=== PATIENT | female | born 1990 | race Caucasian/White ===

== ENCOUNTER 2016-10-17 11:43 | Emergency (ER) | payer SELFPAY ==
[~2016-10-17] VITALS: Ht 162.6 cm; Wt 54.5 kg
[~2016-10-17 11:43] MED LIST: ONDA4TAB9 PO
[2016-10-17 11:47] VITALS: BP 121/75; PULSE 80; RESP 16; O2SAT 97
--- NOTE | 2016-10-17 12:14 | ED.REPORT ---
HPI-Abd Pain F Under 40 Date of Service Oct 17, 2016 ED Provider: Edison Thurman MD This is a 26 year old female who is 6 weeks presenting complaining of nausea and vomiting that began one week ago. Associated with diffuse abdominal pain. Reports decreased PO intake. Pt not taking any anti-emetics at this time. Denies hematemesis or vaginal bleeding. Pt is scheduled for an elective one week from now. Nursing Notes Stated Complaint: NAUSEA/6 OR 7WEEKS PREG Chief Complaint: Female Abdominal Pain Nursing Notes Reviewed: Yes Allergies: Coded Allergies: No Known Allergies (Verified Allergy, Unknown, 10/17/16) Scheduled PRN Metoclopramide (Reglan) 5 Mg Tablet 5 MG PO QID PRN PRN For Nausea Ondansetron (Zofran) 4 Mg Tablet 4 MG PO Q4H PRN PRN For Nausea Ondansetron ODT (Zofran ODT) 4 Mg Tablet 4 MG PO Q4H PRN PRN For Nausea General Time Seen by MD: 11:50 Chief Complaint Nausea, , 1st trimester Hx Obtained From: Patient Arrived By: Walk-in Sudden in Onset?: Yes Onset Occurred: Just prior to arrival Symptom Duration: Since onset Severity: Current: No pain currently Pertinent Negative: Pt denies other symptoms Recent Healthcare: No recent doctor visit, No recent hospitalization Similar Sx Previous: No Past Medical History Past Medical History Reports: Asthma Past Surgical History Reports: Smoking History Current Every Day Smoker Social History Alcohol Use: Denies alcohol use Drug Use: Denies drug use Other Social History: Good social support, Lives with children, Local resident Ambulatory Status Independent Review of Systems Constitutional: Denies: Chills, Fever Respiratory: Denies: Shortness of breath GI: Reports: Abdominal pain, Nausea, Vomiting Complete sys rev & neg: except as marked. Physical Exam Initial Vital Signs Vital Signs (First) Date Time Temp Pulse Resp B/P Pulse Ox O2 Delivery O2 Flow Rate FiO2 10/17/16 11:47 36.9 80 16 121/75 97 10/17/16 14:45 Room Air Initial VS: Reviewed Head / Eyes: Atraumatic, Normocephalic, PERRL ENT: Mucous membranes moist, Conjunctiva normal, No scleral icterus Neck: Supple, Non-tender, Full range of motion Extremities: Vascular intact, Neuro intact, No swelling, No tenderness Skin: Warm, Dry, No cyanosis Neurologic: Alert, Oriented, Nonfocal Psychiatric: Mood/affect normal, Behavior normal, Normal thought content General/Constitutional: Awake, Alert Respiratory / Chest: Breath sounds NL, Breath sounds = bilat, No respiratory distress, No rales, No rhonchi, No wheezing Cardiovascular: Heart rate NL, Regular rhythm, Heart sounds NL, Peripheral circulation NL Abdomen: No guarding, No rebound, BS normoactive Tenderness/Guarding/Rebound: Positive: Tender diffuse Back: Inspection NL, Full range of motion, Non-tender, No midline vertebral tend, No paraspinal tenderness, No CVA tenderness Interpretation & Diagnostics Lab Results Interpretation Test 10/17/16 15:00 Hold Urine Received (Received) Re-Eval/Medical Decision Med Decision/Clinical Course Med Decision/Clinical Course: 26-year-old female history of hyperemesis gravidarum and previous pregnancies presenting 6 weeks by LMP with nausea vomiting 1 week. Patient was given several doses of Zofran and 1 dose of Reglan and her nausea vomiting resolved. She had no abdominal pain until immediately prior to discharge was given some morphine and her symptoms resolved. Her abdominal pain was epigastric. Vital signs stable. Given prescription for Zofran and Reglan to use as needed for nausea and vomiting. She has follow-up with [facility] week for elective . Return precautions given. Re-Evaluation/Progress : Time of Eval: 15:11 Re-Evaluation/Progress Note: Re-checked, nausea is improved. Plan for d/c, all questions addressed. Counseled Regarding: Diagnosis, Lab results, Need for follow-up, When/why to return to ED Discharge & Departure Primary Impression: Vomiting Vomiting type: unspecified Vomiting Intractability: unspecified Nausea presence: with nausea Qualified Code: R11.2 - Nausea with vomiting, unspecified Additional Impression: Weeks of gestation: less than 8 weeks Qualified Code: Z3A.01 - Less than 8 weeks gestation of Disposition: Home Discharge Condition All VS Reviewed: Yes Condition: Stable Patient Instructions: Acute Nausea and Vomiting (ED) Additional Instructions: Take Zofran as prescribed for nausea. Follow-up with your primary care provider. Return to the emergency department if you develop any new or worsening symptoms such as abdominal pain, fever, chills, or vaginal bleeding. Referrals: NOPCP (PCP) Scribe Attestation Portions of this note were transcribed by Melinda Pennington. I, Dr. Thurman personally performed the history, physical exam and medical decision-making; I reviewed and confirmed the accuracy of the information in the transcribed note. Signed by: Melinda Pennington. 10/17/2015, 12:45. Edison Thurman MD Oct 17, 2016 12:14 MELINDA PENNINGTON Oct 17, 2016 12:18
[2016-10-17] MEDS ORDERED: Ondansetron 2 mg/mL 2 mL Inj IVPUSH PRN (12:25)
[2016-10-17] MEDS ORDERED: 0.9% Sodium Chloride 1,000 ML IV ONE (12:25)
[2016-10-17] MEDS ORDERED: Ondansetron 2 mg/mL 2 mL Inj IVPUSH ONE (12:25)
[2016-10-17 14:45] VITALS: BP 109/61; PULSE 90; RESP 16; O2SAT 96
[2016-10-17] MEDS ORDERED: Alum-Mag Hydrox-Simeth 30 mL Suspension PO ONE (15:15)
[2016-10-17] MEDS ORDERED: MetoCLOpramide 5 mg/mL 2 mL Inj IVPUSH ONE (15:15)
[2016-10-17] MEDS ORDERED: ONDA4TAB6 PO (16:13)
[2016-10-17] MEDS ORDERED: METO5TAB78 PO (16:13)
[2016-10-17 16:31] VITALS: BP 102/51; PULSE 72; RESP 16; O2SAT 95
== END 2016-10-17 16:32 | disposition home or self-care (01) ==
LOC: SED 11:43
DX: O21.0 Mild hyperemesis gravidarum (principal); O99.89 Other specified diseases and conditions complicating pregnancy, childbirth and the puerperium; R10.13 Epigastric pain; J45.909 Unspecified asthma, uncomplicated; F17.200 Nicotine dependence, unspecified, uncomplicated; Z3A.01 Less than 8 weeks gestation of pregnancy
CPT/HCPCS: 96361; 96374; 96375; 96376; 99284; J2270; J2405; J2765; J7030

== ENCOUNTER 2016-10-19 09:54 | Emergency (ER) | payer SELFPAY ==
[~2016-10-19] VITALS: Ht 162.6 cm; Wt 54.5 kg
[~2016-10-19 09:54] MED LIST changes: +METO5TAB78 PO; +ONDA4TAB6 PO
[2016-10-19 10:25] VITALS: BP 114/72; PULSE 71; RESP 14; O2SAT 96
--- NOTE | 2016-10-19 10:50 | ED.REPORT ---
HPI-General Illness Date of Service Oct 19, 2016 ED Provider: Doc,Ed MD Nursing Notes Stated Complaint: NAUSEA Chief Complaint: General Complaint Allergies: Coded Allergies: No Known Allergies (Verified Allergy, Unknown, 10/17/16) Scheduled PRN Metoclopramide (Reglan) 5 Mg Tablet 5 MG PO QID PRN PRN For Nausea Ondansetron (Zofran) 4 Mg Tablet 4 MG PO Q4H PRN PRN For Nausea Ondansetron ODT (Zofran ODT) 4 Mg Tablet 4 MG PO Q4H PRN PRN For Nausea General Time Seen by MD: 10:49 Past Medical History Past Medical History Reports: Asthma Past Surgical History Reports: Smoking History Current Every Day Smoker Social History Alcohol Use: Denies alcohol use Drug Use: Denies drug use Other Social History: Good social support, Lives with children, Local resident Ambulatory Status Independent Physical Exam Vital Signs Vital Signs Date Time Temp Pulse Resp B/P Pulse Ox O2 Delivery O2 Flow Rate FiO2 10/19/16 10:25 36.9 71 14 114/72 96 Room Air Discharge & Departure Referrals: NOPCP (PCP) Gerardo Cline DO Oct 19, 2016 10:50
--- NOTE | 2016-10-19 12:55 | ED.REPORT ---
HPI-NVD Date of Service Oct 19, 2016 ED Provider: Vanessa Baehna History of Present Illness: review of visist from 2 days ago indicate patient was provided morphine. Patient was informed she needed to provided a urine, given water to drink. When I went in 10 minutes later she was gone. Nursing Notes Stated Complaint: NAUSEA Chief Complaint: General Complaint Allergies: Coded Allergies: No Known Allergies (Verified Allergy, Unknown, 10/17/16) Scheduled PRN Metoclopramide (Reglan) 5 Mg Tablet 5 MG PO QID PRN PRN For Nausea Ondansetron (Zofran) 4 Mg Tablet 4 MG PO Q4H PRN PRN For Nausea Ondansetron ODT (Zofran ODT) 4 Mg Tablet 4 MG PO Q4H PRN PRN For Nausea General Time Seen by MD: 12:38 Chief Complaint Nausea, Vomiting Past Medical History Past Medical History Reports: Asthma Past Surgical History Reports: Smoking History Current Every Day Smoker Social History Alcohol Use: Denies alcohol use Drug Use: Denies drug use Other Social History: Good social support, Lives with children, Local resident Ambulatory Status Independent Physical Exam Initial Vital Signs Vital Signs (First) Date Time Temp Pulse Resp B/P Pulse Ox O2 Delivery O2 Flow Rate FiO2 10/19/16 10:25 36.9 71 14 114/72 96 Room Air Discharge & Departure Impression: Primary Impression: Nausea Referrals: NOPCP (PCP) EDSupervising Provider for APC: Don Blanc MD, Sue ARNP Oct 19, 2016 12:54
== END 2016-10-19 13:06 | disposition left against medical advice (07) ==
LOC: SED 09:54
DX: R11.0 Nausea (principal); J45.909 Unspecified asthma, uncomplicated; F17.200 Nicotine dependence, unspecified, uncomplicated; Z53.21 Procedure and treatment not carried out due to patient leaving prior to being seen by health care provider